=== PATIENT | female | born 1990 | race Caucasian/White ===

== ENCOUNTER 2018-11-20 17:55 | Inpatient (IN) | payer OTHER ==
[2018-11-20 18:19] VITALS: BMI 20.9
--- NOTE | 2018-11-20 19:10 | HP ---
COWS - Scale Resting Pulse: 0= [place] 80 or Below Sweatin= Chills/Flushing Restless Observation: 1= Difficult to Sit Still Pupil Size: 1= Pupils >than Normal Bone or Joint Aches: 2= Severe Diffuse Aches Runny Nose/ Eye Tearin= Runny Nose/Eyes GI Upset > 30mins: 2= Nausea/Diarrhea Tremor Observation: 2= Slight Tremor Visible Yawning Observation: 1= 1-2x During Session Anxiety or Irritability: 2=Irritable/Anxious Goose Flesh Skin: 0=Smooth Skin COWS Score: 14 CIWA Score - Admission Criteria [facility]ASAS Guidelines: Admission for Medically Managed Detox: Requires at least one of the followin. CIWA greater than 12 2. Seizures within the past 24 hours 3. Delirium tremens within the past 24 hours 4. Hallucinations within the past 24 hours 5. Acute intervention needed for co occurring medical disorder 6. Acute intervention needed for co occurring psychiatric disorder 7. Severe withdrawal that cannot be handled at a lower level of care (continued vomiting, continued diarrhea, abnormal vital signs) requiring intravenous medication and/or fluids 8. Admission ROS [facility] Chief Complaint: i am here need help to stop using heroin Allergies/Adverse Reactions: Allergies Allergy/AdvReac Type Severity Reaction Status Date / Time No Known Allergies Allergy Verified 11/20/18 18:08 History of Present Illness: this 28 years old female with herin dependence and alcohol abused,seeking help to stop using heroin, first time to this facility multiple admission in detox before,last 2017 also on medication for adhd no seizure,no syncope nicotine dependence 1/2 pack/day,dickson like to have nicotine patch and gum adhd,depression,anxiety weight loss longest sobriety 1 year from 12/07 to 12/08 plan for out patient program after detox Exam Limitations: No Limitations - Ebola screening Have you traveled outside of the country in the last 21 days: No (N) Have you had contact with anyone from an Ebola affected area: No Do you have a fever: No - Review of Systems Constitutional: Chills, Loss of Appetite, Malaise, Night Sweats, Changes in sleep, Weakness EENT: reports: Tearing, Nose Congestion Respiratory: reports: No Symptoms reported Cardiac: reports: No Symptoms Reported GI: reports: Nausea, Poor Appetite, Abdominal cramping : reports: No Symptoms Reported Musculoskeletal: reports: Back Pain, Joint Pain, Muscle Pain Integumentary: reports: Dryness Neuro: reports: Headache, Tremors Endocrine: reports: No Symptoms Reported Hematology: reports: No Symptoms Reported Psychiatric: reports: No Sypmtoms Reported, Judgement Intact, Mood/Affect Appropiate, Orientated x3, Anxious, Depressed, other (insomnia adhd) Other Systems: Reviewed and Negative Patient History - Patient Medical History Hx Anemia: No Hx Asthma: No Hx Chronic Obstructive Pulmonary Disease (COPD): No Hx Cancer: No Hx Cardiac Disorders: No Hx Congestive Heart Failure: No Hx Hypertension: No Hx Hypercholesterolemia: No Hx Pacemaker: No HX Cerebrovascular Accident: No Hx Seizures: No Hx Dementia: No Hx Diabetes: No Hx Gastrointestinal Disorders: No Hx Liver Disease: No Hx Genitourinary Disorders: No Hx Sexually Transmitted Disorders: No Hx Renal Disease (ESRD): No Hx Thyroid Disease: No Hx Human Immunodeficiency Virus (HIV): No (last 2018 negagive) Hx Hepatitis C: No Hx Depression: Yes (anxiety,depression,insomnia) Hx Suicide Attempt: No Hx Bipolar Disorder: No Hx Schizophrenia: No Other Medical History: no sucidal,no homicidal,adhd - Patient Surgical History Past Surgical History: Yes Hx Section: Yes (x 3,last 6 years) - PPD History Previous Implant?: Yes Documented Results: Negative w/o proof Implanted On Prior R Admission?: No PPD to be Administered?: No - Reproductive History Patient is a Female of Child Bearing Age (11 -55 yrs old): Yes Last Menstrual Period: 10/24/18 Patient : No - Smoking Cessation Smoking history: Current every day smoker Have you smoked in the past 12 months: Yes Aproximately how many cigarettes per day: 10 Hx Chewing Tobacco Use: No Initiated information on smoking cessation: Yes 'Breaking Loose' booklet given: 11/20/18 - Substance & Tx. History Hx Alcohol Use: Yes Hx Substance Use: Yes Substance Use Type: Alcohol, Heroin Hx Substance Use Treatment: Yes (2017) - Substances abused Heroin Substance route: Injection Frequency: Daily Amount used: 1 bundle and a half Age of first use: 19 Date of last use: 11/20/18 Alcohol Substance route: Oral Frequency: 1-2 times per week Amount used: 1 can of beer Age of first use: 19 Date of last use: 11/18/18 Family Disease History - Family Disease History Family History: Denies Admission Physical Exam [facility] - Vital Signs Vital Signs: Vital Signs - 24 hr 11/20/18 18:08 Temperature 98.0 F Pulse Rate 66 Respiratory 20 Rate Blood Pressure 110/70 - Physical General Appearance: Yes: Moderate Distress, Tremorous, Irritable, Sweating, Anxious HEENTM: Yes: Normal ENT Inspection, NICHOLAS, Pharynx Normal Respiratory: Yes: Lungs Clear, Normal Breath Sounds, No Respiratory Distress Neck: Yes: Within Normal Limits, Supple, Trachea in good position Breast: Yes: Breast Exam Deferred Cardiology: Yes: Within Normal Limits, Regular Rhythm, Regular Rate, S1, S2 Abdominal: Yes: Within Normal Limits, Normal Bowel Sounds, Non Tender, Soft, Surgical Scar Genitourinary: Yes: Within Normal Limits Back: Yes: Normal Inspection, Muscle Spasm Musculoskeletal: Yes: Back pain, Muscle Pain Extremities: Yes: Normal Range of Motion, Tremors Neurological: Yes: battery builder II-XII NML intact, Alert, Motor Strength 5/5 Integumentary: Yes: Dry, Track [place] Lymphatic: Yes: Within Normal Limits - Diagnostic (1) Opioid dependence with withdrawal Current Visit: Yes Status: Acute (2) Alcohol abuse Current Visit: Yes Status: Acute (3) IVDU (intravenous drug user) Current Visit: Yes Status: Acute (4) Insomnia secondary to depression with anxiety Current Visit: Yes Status: Acute (5) ADHD Current Visit: Yes Status: Acute (6) Weight loss Current Visit: Yes Status: Acute (7) Nicotine dependence Current Visit: Yes Status: Acute Cleared for Admission [facility] - Detox or Rehab [facility] Level of Care: Medically Managed Detox Regimen/Protocol: Methadone Breathalyzer - Breathalyzer Breathalyzer: 0 Urine Drug Screen - Test Device Lot number: [id number] Expiration date: 08/20/20 - Control Is test valid?: Yes - Results Drug screen NEGATIVE: No Urine drug screen results: FEN-Fentanyl, MOP-Opiates, OXY-Oxycodone Inpatient Rehab Admission - Rehab Decision to Admit Inpatient rehab admission?: No
[2018-11-20] MEDS ORDERED: MENTHOL/PHENOL 1 EACH UD MM PRN (19:21)
[2018-11-20] MEDS ORDERED: MAG HYDROX/AL HYDROX/SIMETH 30 ML UNIT-DOSE CUP PO PRN (19:21)
[2018-11-20] MEDS ORDERED: MAGNESIUM HYDROX 2400MG/30ML ORAL SUSPENSION 30 ML CUP PO PRN (19:21)
[2018-11-20] MEDS ORDERED: ACETAMINOPHEN 325 MG TABLET (FP) PO PRN ×2 (19:21)
[2018-11-20] MEDS ORDERED: BISMUTH SUBSALICYLATE 524 MG/30 ML UD PO PRN (19:21)
[2018-11-20] MEDS ORDERED: MAGNESIUM CITRATE 300 ML BOTTLE PO PRN (19:21)
[2018-11-20] MEDS ORDERED: IBUPROFEN 400 MG TABLET (FP) PO PRN (19:21)
[2018-11-20] MEDS ORDERED: METHADONE HCL 10 MG TABLET (FOR DETOX USE ONLY) PO ONE (19:40)
[2018-11-20] MEDS: NICOTINE 21 MG/24 HOURS TOPICAL PATCH TD SCH (20:16)
[2018-11-20] MEDS: METHOCARBAMOL 500 MG TABLET PO PRN (20:16)
[2018-11-20] MEDS: THIAMINE HCL 100 MG TABLET (FP) PO SCH (21:09)
[2018-11-20] MEDS: diazePAM 5 MG TABLET PO PRN (21:09)
[2018-11-20] MEDS: MELATONIN 5 MG TABLETS PO PRN (21:10)
[2018-11-20] MEDS: NICOTINE POLACRILEX 2 MG GUM BUC PRN (21:12)
[2018-11-21] MEDS: diazePAM 5 MG TABLET PO PRN ×4 (05:21→19:16)
[2018-11-21] MEDS: NICOTINE POLACRILEX 2 MG GUM BUC PRN ×3 (05:35→12:14)
[2018-11-21] MEDS: METHOCARBAMOL 500 MG TABLET PO PRN ×3 (05:35→19:16)
[2018-11-21] MEDS ORDERED: METHADONE HCL 5 MG TABLET (FOR DETOX USE ONLY) ONE (09:38)
[2018-11-21] MEDS ORDERED: METHADONE HCL 10 MG TABLET (FOR DETOX USE ONLY) ONE (09:38)
--- NOTE | 2018-11-21 09:39 | EKG ---
Test Reason : Blood Pressure : / mmHG Vent. Rate : 066 BPM Atrial Rate : 066 BPM P-R Int : 146 ms QRS Dur : 084 ms QT Int : 418 ms P-R-T Axes : 062 069 049 degrees QTc Int : 438 ms NORMAL SINUS RHYTHM NORMAL ECG NO PREVIOUS ECGS AVAILABLE Confirmed by ADELA STROUD, HOLLY ([id number]) on 11/21/2018 9:39:18 AM Referred By: Feilciano Rosales Confirmed By:HOLLY CHAPMAN MD
[2018-11-21] MEDS ORDERED: METHADONE (DETOX) 20 MG, METHADONE (DETOX) 5 MG PO ONE (10:00)
[2018-11-21] MEDS: NICOTINE 21 MG/24 HOURS TOPICAL PATCH TD SCH (10:27)
[2018-11-21] MEDS: PRENATAL VITAMINS W/ FOLIC ACID TABLET (FP) PO SCH (10:27)
[2018-11-21] MEDS: hydrOXYzine PAMOATE 25 MG CAPSULE (FP) PO PRN (10:30)
[2018-11-21] MEDS: cloNIDine HCL 0.1 MG TABLET PO PRN ×2 (11:30→22:41)
[2018-11-21 12:07] LABS: ALBUMIN 3.2 g/dl (3.4-5.0); BILIRUBIN,TOTAL 0.4 mg/dL (0.2-1); BLOOD UREA NITROGEN 11.7 mg/dL (7-18); CALCIUM 8.7 mg/dL (8.5-10.1); CREATININE 0.5 mg/dL (0.55-1.3); POTASSIUM 4.1 mmol/L (3.5-5.1); TOT PROT 6.7 g/dl (6.4-8.2)
[2018-11-21 12:16] LABS: HEMATOCRIT 36.2 % (32.4-45.2); HEMOGLOBIN 12.4 GM/dL (10.7-15.3); MCH 29.8 pg (25.7-33.7); MCHC 34.2 g/dl (32.0-36.0); MEAN CELL VOLUME 87.2 fl (80-96); MEAN PLT VOLUME 8.4 fl (7.5-11.1); PLATELET COUNT 257 K/MM3 (134-434); RBC 4.15 M/mm3 (3.60-5.2); RDW 13.3 % (11.6-15.6); WHITE BLOOD COUNT 6.3 K/mm3 (4.0-10.0)
[2018-11-21 12:19] LABS: PH,URINE 7.5 (5.0-8.0); URINE APPEARANCE CLEAR; URINE BILIRUBIN NEGATIVE (NEGATIVE); URINE COLOR YELLOW; URINE GLUCOSE (UA) NEGATIVE (NEGATIVE); URINE KETONE NEGATIVE (NEGATIVE); URINE LEUK ESTERASE NEGATIVE (NEGATIVE); URINE NITRITE NEGATIVE (NEGATIVE); URINE PROTEIN NEGATIVE (NEGATIVE); URINE UROBILINOGEN 0.2 mg/dL (0.2-1.0)
--- NOTE | 2018-11-21 15:43 | CONSULT ---
[facility] Psychiatric Consult - Data Date of interview: 11/21/18 Admission source: [facility] Identifying data: Patient is a 28 year single female, mother of three, unemployed, and currently homeless. This is one of multiple admissions for patient. Patient admitted to for alcohol and opiate dependence. Substance Abuse History: - Smoking Cessation. Smoking history: Current every day smoker. Have you smoked in the past 12 months: Yes. Aproximately how many cigarettes per day: 10. Hx Chewing Tobacco Use: No. Initiated information on smoking cessation: Yes. 'Breaking Loose' booklet given: 11/20/18. - Substance & Tx. History. Hx Alcohol Use: Yes. Hx Substance Use: Yes. Substance Use Type : Alcohol, Heroin. Hx Substance Use Treatment: Yes (2017 [facility]). - Substances abused. Heroin. Substance route: Injection. Frequency: Daily. Amount used : 1 bundle and a half. Age of first use: 19. Date of last use: 11/20/18. Alcohol. Substance route: Oral. Frequency: 1-2 times per week. Amount used: 1 can of beer. Age of first use: 19. Date of last use: 11/18/18 Medical History: Hx 3 Section Psychiatric History: Patient's first psychiatric contact was at 17 years of age due to her history of difficulty focusing and restlessness behavior. She was diagnosed with ADHD and prescribed concerta. She reports seeing multiple outpatient psychiatric providers throughout the years. Her most recent outpatient psychiatric contact was are in September of 2018 at the [facility] in [facility]. She was discharged with a prescription of Concerta 72mg daily. Reports last taking concerta 2 weeks ago. Patient denies h/ o suicide attempt. At present patient presents as tired and letheragic. Patient denies h/o psychiatric hospitalization and suicide attempt. Physical/Sexual Abuse/Trauma History: denies. Mental Status Exam - Mental Status Exam Alert and Oriented to: Time, Place, Person Cognitive Function: Good Patient Appearance: Well Groomed Mood: Withdrawn Affect: Mood Congruent Patient Behavior: Fatigued, Cooperative Speech Pattern: Appropriate Voice Loudness: Moderately Soft/Quiet Thought Process: Goal Oriented Thought Disorder: Not Present Hallucinations: Denies Suicidal Ideation: Denies Homicidal Ideation: Denies Insight/Judgement: Poor Sleep: Fair Appetite: Fair Muscle strength/Tone: Normal Gait/Station: Normal Psychiatric Findings - Problem List ([place] 1, 2,3) (1) ADHD Current Visit: No Status: Chronic (2) Nicotine dependence Current Visit: Yes Status: Acute (3) Opioid dependence with withdrawal Current Visit: Yes Status: Acute (4) Alcohol abuse Current Visit: Yes Status: Acute - Initial Treatment Plan Initial Treatment Plan: Psychoeducation provided. Detoxification in progress. Observation.
--- NOTE | 2018-11-21 16:31 | PN ---
BHS COWS - Scale Resting Pulse: 0= [place] 80 or Below Sweatin= Chills/Flushing Restless Observation: 3= Extraneous Movement Pupil Size: 0= Normal to Room Light Bone or Joint Aches: 2= Severe Diffuse Aches Runny Nose/ Eye Tearin= Runny Nose/Eyes GI Upset > 30mins: 2= Nausea/Diarrhea Tremor Observation of Outstretched Hands: 2= Slight Tremor Visible Yawning Observation: 0= None Anxiety or Irritability: 1=Feels Anxious/Irritable Goose Flesh Skin: 0=Smooth Skin COWS Score: 13 BHS Progress Note (SOAP) Subjective: Sweating, body ache, chills Objective: 11/21/18 16:27 Last Vital Signs Temp Pulse Resp BP Pulse Ox 97.5 F L 68 18 134/81 11/21/18 13:53 11/21/18 13:53 11/21/18 13:53 11/21/18 13:53 Elevated blood pressure 134/81 (denies htn) Laboratory Tests 11/21/18 11/21/18 11/21/18 07:30 07:30 07:30 WBC 6.3 RBC 4.15 Hgb 12.4 Hct 36.2 MCV 87.2 MCH 29.8 MCHC 34.2 RDW 13.3 Plt Count 257 MPV 8.4 Sodium 138 Potassium 4.1 Chloride 104 Carbon Dioxide 28 Anion Gap 6 L BUN 11.7 Creatinine 0.5 L Est GFR (CKD-EPI)AfAm 150.52 Est GFR (CKD-EPI)NonAf 129.87 Random Glucose 71 L Calcium 8.7 Total Bilirubin 0.4 AST 15 ALT 19 Alkaline Phosphatase 80 Total Protein 6.7 Albumin 3.2 L Urine Color Urine Appearance Urine pH Ur Specific [place] Urine Protein Urine Glucose (UA) Urine Ketones Urine Blood Urine Nitrite Urine Bilirubin Urine Urobilinogen Ur Leukocyte Esterase RPR Titer Nonreactive 11/21/18 07:30 WBC RBC Hgb Hct MCV MCH MCHC RDW Plt Count MPV Sodium Potassium Chloride Carbon Dioxide Anion Gap BUN Creatinine Est GFR (CKD-EPI)AfAm Est GFR (CKD-EPI)NonAf Random Glucose Calcium Total Bilirubin AST ALT Alkaline Phosphatase Total Protein Albumin Urine Color Yellow Urine Appearance Clear Urine pH 7.5 Ur Specific [place] 1.014 Urine Protein Negative Urine Glucose (UA) Negative Urine Ketones Negative Urine Blood Negative Urine Nitrite Negative Urine Bilirubin Negative Urine Urobilinogen 0.2 Ur Leukocyte Esterase Negative RPR Titer Labs reviewed Assessment: 11/21/18 16:29 Withdrawal sxs Plan: Continue detox Encouraged PO water intake Elevated blood pressure (denies htn): most likely r/t withdrawal, on clonidine prn
[2018-11-21] MEDS: MELATONIN 5 MG TABLETS PO PRN (22:41)
[2018-11-21] MEDS: THIAMINE HCL 100 MG TABLET (FP) PO SCH (22:41)
[2018-11-22] MEDS: METHOCARBAMOL 500 MG TABLET PO PRN ×3 (05:35→18:59)
[2018-11-22] MEDS: diazePAM 5 MG TABLET PO PRN ×5 (05:35→23:06)
[2018-11-22] MEDS ORDERED: METHADONE HCL 10 MG TABLET (FOR DETOX USE ONLY) PO ONE (10:00)
[2018-11-22] MEDS: NICOTINE 21 MG/24 HOURS TOPICAL PATCH TD SCH (10:45)
[2018-11-22] MEDS: PRENATAL VITAMINS W/ FOLIC ACID TABLET (FP) PO SCH (10:45)
[2018-11-22] MEDS: hydrOXYzine PAMOATE 25 MG CAPSULE (FP) PO PRN (12:02)
--- NOTE | 2018-11-22 13:34 | PN ---
BHS COWS - Scale Resting Pulse: 0= [place] 80 or Below Sweatin=Flushed/Facial Moisture Restless Observation: 1= Difficult to Sit Still Pupil Size: 0= Normal to Room Light Bone or Joint Aches: 2= Severe Diffuse Aches Runny Nose/ Eye Tearin= Runny Nose/Eyes GI Upset > 30mins: 0= None Tremor Observation of Outstretched Hands: 1= Tremor [place], Not Seen Yawning Observation: 1= 1-2x During Session Anxiety or Irritability: 2=Irritable/Anxious Goose Flesh Skin: 0=Smooth Skin COWS Score: 11 BHS Progress Note (SOAP) Subjective: sweats shakes interrupted sleep body aches irritable agitation Objective: 11/22/18 13:32 Vital Signs Temperature 97.3 F L 11/22/18 10:00 Pulse Rate 64 11/22/18 10:00 Respiratory Rate 18 11/22/18 10:00 Blood Pressure 99/64 11/22/18 10:00 O2 Sat by Pulse Oximetry (%) Laboratory Tests 11/20/18 11/21/18 11/21/18 18:30 07:30 07:30 WBC 6.3 RBC 4.15 Hgb 12.4 Hct 36.2 MCV 87.2 MCH 29.8 MCHC 34.2 RDW 13.3 Plt Count 257 MPV 8.4 Sodium 138 Potassium 4.1 Chloride 104 Carbon Dioxide 28 Anion Gap 6 L BUN 11.7 Creatinine 0.5 L Est GFR (CKD-EPI)AfAm 150.52 Est GFR (CKD-EPI)NonAf 129.87 Random Glucose 71 L Calcium 8.7 Total Bilirubin 0.4 AST 15 ALT 19 Alkaline Phosphatase 80 Total Protein 6.7 Albumin 3.2 L Urine Color Urine Appearance Urine pH Ur Specific [place] Urine Protein Urine Glucose (UA) Urine Ketones Urine Blood Urine Nitrite Urine Bilirubin Urine Urobilinogen Ur Leukocyte Esterase POC Urine HCG, Qual Negative RPR Titer 11/21/18 11/21/18 07:30 07:30 WBC RBC Hgb Hct MCV MCH MCHC RDW Plt Count MPV Sodium Potassium Chloride Carbon Dioxide Anion Gap BUN Creatinine Est GFR (CKD-EPI)AfAm Est GFR (CKD-EPI)NonAf Random Glucose Calcium Total Bilirubin AST ALT Alkaline Phosphatase Total Protein Albumin Urine Color Yellow Urine Appearance Clear Urine pH 7.5 Ur Specific [place] 1.014 Urine Protein Negative Urine Glucose (UA) Negative Urine Ketones Negative Urine Blood Negative Urine Nitrite Negative Urine Bilirubin Negative Urine Urobilinogen 0.2 Ur Leukocyte Esterase Negative POC Urine HCG, Qual RPR Titer Nonreactive labs noted aaox3 ambulating no acute distress Assessment: 11/22/18 13:33 withdrawal sx Plan: continue detox increase fluids
[2018-11-22] MEDS: NICOTINE POLACRILEX 2 MG GUM BUC PRN ×3 (14:50→22:38)
[2018-11-22] MEDS: THIAMINE HCL 100 MG TABLET (FP) PO SCH (22:36)
[2018-11-22] MEDS: MELATONIN 5 MG TABLETS PO PRN (22:38)
[2018-11-23] MEDS: METHOCARBAMOL 500 MG TABLET PO PRN ×4 (01:26→21:11)
[2018-11-23] MEDS: diazePAM 5 MG TABLET PO PRN ×4 (05:32→19:02)
[2018-11-23] MEDS: NICOTINE POLACRILEX 2 MG GUM BUC PRN ×4 (05:35→21:12)
[2018-11-23] MEDS ORDERED: METHADONE HCL 10 MG TABLET (FOR DETOX USE ONLY) ONE (08:46)
[2018-11-23] MEDS ORDERED: METHADONE HCL 5 MG TABLET (FOR DETOX USE ONLY) ONE (08:47)
--- NOTE | 2018-11-23 09:30 | PN ---
BHS COWS - Scale Resting Pulse: 0= [place] 80 or Below Sweatin=Flushed/Facial Moisture Restless Observation: 1= Difficult to Sit Still Pupil Size: 0= Normal to Room Light Bone or Joint Aches: 1= Mild Discomfort Runny Nose/ Eye Tearin= Runny Nose/Eyes GI Upset > 30mins: 0= None Tremor Observation of Outstretched Hands: 2= Slight Tremor Visible Yawning Observation: 1= 1-2x During Session Anxiety or Irritability: 2=Irritable/Anxious Goose Flesh Skin: 0=Smooth Skin COWS Score: 11 BHS Progress Note (SOAP) Subjective: agitation sweats shakes interrupted sleep body aches muscle aches/spasms Objective: 11/23/18 09:28 Vital Signs Temperature 97.7 F 11/23/18 06:00 Pulse Rate 69 11/23/18 06:00 Respiratory Rate 18 11/23/18 06:00 Blood Pressure 93/62 11/23/18 06:00 O2 Sat by Pulse Oximetry (%) Laboratory Tests 11/20/18 11/21/18 11/21/18 18:30 07:30 07:30 WBC 6.3 RBC 4.15 Hgb 12.4 Hct 36.2 MCV 87.2 MCH 29.8 MCHC 34.2 RDW 13.3 Plt Count 257 MPV 8.4 Sodium 138 Potassium 4.1 Chloride 104 Carbon Dioxide 28 Anion Gap 6 L BUN 11.7 Creatinine 0.5 L Est GFR (CKD-EPI)AfAm 150.52 Est GFR (CKD-EPI)NonAf 129.87 Random Glucose 71 L Calcium 8.7 Total Bilirubin 0.4 AST 15 ALT 19 Alkaline Phosphatase 80 Total Protein 6.7 Albumin 3.2 L Urine Color Urine Appearance Urine pH Ur Specific [place] Urine Protein Urine Glucose (UA) Urine Ketones Urine Blood Urine Nitrite Urine Bilirubin Urine Urobilinogen Ur Leukocyte Esterase POC Urine HCG, Qual Negative RPR Titer 11/21/18 11/21/18 07:30 07:30 WBC RBC Hgb Hct MCV MCH MCHC RDW Plt Count MPV Sodium Potassium Chloride Carbon Dioxide Anion Gap BUN Creatinine Est GFR (CKD-EPI)AfAm Est GFR (CKD-EPI)NonAf Random Glucose Calcium Total Bilirubin AST ALT Alkaline Phosphatase Total Protein Albumin Urine Color Yellow Urine Appearance Clear Urine pH 7.5 Ur Specific [place] 1.014 Urine Protein Negative Urine Glucose (UA) Negative Urine Ketones Negative Urine Blood Negative Urine Nitrite Negative Urine Bilirubin Negative Urine Urobilinogen 0.2 Ur Leukocyte Esterase Negative POC Urine HCG, Qual RPR Titer Nonreactive labs noted aaox3 ambulating no acute distress Assessment: 11/23/18 09:29 withdrawal sx Plan: continue detox increase fluids muscle relaxants prn motrin prn
[2018-11-23] MEDS ORDERED: METHADONE (DETOX) 10 MG, METHADONE (DETOX) 5 MG PO ONE (10:00)
[2018-11-23] MEDS: PRENATAL VITAMINS W/ FOLIC ACID TABLET (FP) PO SCH (10:08)
[2018-11-23] MEDS: NICOTINE 21 MG/24 HOURS TOPICAL PATCH TD SCH (10:09)
[2018-11-23] MEDS: THIAMINE HCL 100 MG TABLET (FP) PO SCH (21:11)
[2018-11-23] MEDS: MELATONIN 5 MG TABLETS PO PRN (21:11)
[2018-11-23] MEDS: hydrOXYzine PAMOATE 25 MG CAPSULE (FP) PO PRN (21:11)
[2018-11-24] MEDS: PRENATAL VITAMINS W/ FOLIC ACID TABLET (FP) PO SCH (09:24)
[2018-11-24] MEDS: NICOTINE 21 MG/24 HOURS TOPICAL PATCH TD SCH (09:24)
[2018-11-24] MEDS: METHOCARBAMOL 500 MG TABLET PO PRN ×3 (09:25→23:34)
[2018-11-24] MEDS: NICOTINE POLACRILEX 2 MG GUM BUC PRN ×5 (09:25→23:35)
[2018-11-24] MEDS ORDERED: METHADONE HCL 10 MG TABLET (FOR DETOX USE ONLY) PO ONE (10:00)
--- NOTE | 2018-11-24 14:31 | PN ---
BHS COWS - Scale Resting Pulse: 0= [place] 80 or Below Sweatin=Flushed/Facial Moisture Restless Observation: 1= Difficult to Sit Still Pupil Size: 0= Normal to Room Light Bone or Joint Aches: 1= Mild Discomfort Runny Nose/ Eye Tearin= None GI Upset > 30mins: 0= None Tremor Observation of Outstretched Hands: 0= None Yawning Observation: 0= None Anxiety or Irritability: 0= None Goose Flesh Skin: 0=Smooth Skin COWS Score: 4 BHS Progress Note (SOAP) Subjective: sweats body aches Objective: 11/24/18 14:29 Vital Signs Temperature 98.2 F 11/24/18 13:10 Pulse Rate 72 11/24/18 13:10 Respiratory Rate 18 11/24/18 13:10 Blood Pressure 104/50 L 11/24/18 13:10 O2 Sat by Pulse Oximetry (%) aaox3 ambulating no acute distress Assessment: 11/24/18 14:31 mild withdrawals Plan: continue detox d/c in am
[2018-11-24] MEDS: hydrOXYzine PAMOATE 25 MG CAPSULE (FP) PO PRN (16:36)
[2018-11-24] MEDS: THIAMINE HCL 100 MG TABLET (FP) PO SCH (21:21)
[2018-11-25] MEDS ORDERED: METHADONE HCL 5 MG TABLET (FOR DETOX USE ONLY) PO ONE (06:00)
[2018-11-25 09:28] VITALS: BP 111/72; PULSE 99; TEMP 96.6
[2018-11-25] MEDS: PRENATAL VITAMINS W/ FOLIC ACID TABLET (FP) PO SCH (09:31)
[2018-11-25] MEDS: NICOTINE 21 MG/24 HOURS TOPICAL PATCH TD SCH (09:31)
--- NOTE | 2018-11-25 09:36 | DS ---
[facility] Detox Discharge Summary Admission Date: 11/20/18 Discharge Date: 11/25/18 - History Present History: Alcohol Dependence, Opioid Dependence - Physical Exam Results Vital Signs: Vital Signs Temperature 96.6 F L 11/25/18 09:05 Pulse Rate 99 H 11/25/18 09:05 Respiratory Rate 18 11/25/18 09:05 Blood Pressure 111/72 11/25/18 09:05 O2 Sat by Pulse Oximetry (%) Pertinent Admission Physical Exam Findings: pt arrived in withdrawals Laboratory Tests 11/20/18 11/21/18 11/21/18 18:30 07:30 07:30 WBC 6.3 RBC 4.15 Hgb 12.4 Hct 36.2 MCV 87.2 MCH 29.8 MCHC 34.2 RDW 13.3 Plt Count 257 MPV 8.4 Sodium 138 Potassium 4.1 Chloride 104 Carbon Dioxide 28 Anion Gap 6 L BUN 11.7 Creatinine 0.5 L Est GFR (CKD-EPI)AfAm 150.52 Est GFR (CKD-EPI)NonAf 129.87 Random Glucose 71 L Calcium 8.7 Total Bilirubin 0.4 AST 15 ALT 19 Alkaline Phosphatase 80 Total Protein 6.7 Albumin 3.2 L Urine Color Urine Appearance Urine pH Ur Specific [place] Urine Protein Urine Glucose (UA) Urine Ketones Urine Blood Urine Nitrite Urine Bilirubin Urine Urobilinogen Ur Leukocyte Esterase POC Urine HCG, Qual Negative RPR Titer 11/21/18 11/21/18 07:30 07:30 WBC RBC Hgb Hct MCV MCH MCHC RDW Plt Count MPV Sodium Potassium Chloride Carbon Dioxide Anion Gap BUN Creatinine Est GFR (CKD-EPI)AfAm Est GFR (CKD-EPI)NonAf Random Glucose Calcium Total Bilirubin AST ALT Alkaline Phosphatase Total Protein Albumin Urine Color Yellow Urine Appearance Clear Urine pH 7.5 Ur Specific [place] 1.014 Urine Protein Negative Urine Glucose (UA) Negative Urine Ketones Negative Urine Blood Negative Urine Nitrite Negative Urine Bilirubin Negative Urine Urobilinogen 0.2 Ur Leukocyte Esterase Negative POC Urine HCG, Qual RPR Titer Nonreactive today pt is aaox3 ambulating no acute distress no s/s of withdrawals - Treatment Hospital Course: Detox Protocol Followed, Detoxed Safely, Responded well, Discharged Condition Good, Rehab Referral Accepted Patient has Accepted a Rehab Referral to: pt declined rehab; pt referred to [facility]p - Medication Discharge Medications: Ambulatory Orders Buprenorphine HCl/Naloxone HCl [Suboxone 12 mg-3 mg Sl Film] 1 film SL BID 11/20 Methylphenidate HCl [Concerta] 72 mg PO DAILY 11/20/18 - Diagnosis (1) Alcohol abuse Current Visit: Yes Status: Chronic (2) IVDU (intravenous drug user) Current Visit: Yes Status: Chronic (3) Insomnia secondary to depression with anxiety Current Visit: Yes Status: Acute (4) Nicotine dependence Current Visit: Yes Status: Chronic Qualifiers: Nicotine product type: cigarettes Substance use status: uncomplicated Qualified Code(s): F17.210 - Nicotine dependence, cigarettes, uncomplicated (5) Opioid dependence with withdrawal Current Visit: Yes Status: Chronic (6) Weight loss Current Visit: Yes Status: Acute (7) ADHD Current Visit: No Status: Chronic - AMA Did Patient Leave Against Medical Advice: No
== END 2018-11-25 09:12 | disposition home or self-care (01) | DRG 773 ==
LOC: YASAS 17:55 → Y6N 19:23
PROVIDERS: ADMIT Surgery; ATTEND Surgery
PROC: HZ2ZZZZ Detoxification Services for Substance Abuse Treatment (ICD-10-PCS; principal; 2018-11-20)
DX: F11.23 Opioid dependence with withdrawal (principal); F10.10 Alcohol abuse, uncomplicated; F17.210 Nicotine dependence, cigarettes, uncomplicated; F51.05 Insomnia due to other mental disorder; F90.9 Attention-deficit hyperactivity disorder, unspecified type; R63.4 Abnormal weight loss; R03.0 Elevated blood-pressure reading, without diagnosis of hypertension
CPT/HCPCS: 36415; 80053; 81003; 81025; 85027; 86480; 86593; 93005; 93010; J0735

== ENCOUNTER 2024-05-30 03:34 | Inpatient (IN) | payer OTHER ==
[2024-05-30 03:50] VITALS: BMI 20.7
[2024-05-30] MEDS ORDERED: MAG HYDROX/AL HYDROX/SIMETH 30 ML UNIT-DOSE CUP PO PRN (04:25)
[2024-05-30] MEDS ORDERED: guaiFENesin 600 MG TABLET.ER (FP) PO PRN (04:25)
[2024-05-30] MEDS ORDERED: DICYCLOMINE HCL 10 MG CAPSULE PO PRN (04:25)
[2024-05-30] MEDS ORDERED: LOPERAMIDE HCL 2 MG CAPSULE PO PRN (04:25)
[2024-05-30] MEDS ORDERED: BENZONATATE 200 MG CAPSULE PO PRN (04:25)
[2024-05-30] MEDS ORDERED: NALOXONE (NARCAN) HCL 4 MG/0.1 ML SPRAY NS PRN (04:25)
[2024-05-30] MEDS ORDERED: BISMUTH SUBSALICYLATE 524 MG/30 ML PO PRN (04:25)
[2024-05-30] MEDS ORDERED: BENZOCAINE/MENTHOL (CHLORASEPTIC ) LOZENGE MM PRN (04:25)
[2024-05-30] MEDS ORDERED: ACETAMINOPHEN 325 MG TABLET (FP) PO PRN (04:25)
[2024-05-30] MEDS ORDERED: hydrOXYzine PAMOATE 25 MG CAPSULE (FP) PO PRN (04:25)
[2024-05-30] MEDS ORDERED: POLYETHYLENE GLYCOL (HEALTHYLAX) 3350 17 GM PACKET PO PRN (04:25)
[2024-05-30] MEDS ORDERED: MAGNESIUM HYDROX 2400MG/30ML ORAL SUSPENSION 30 ML CUP PO PRN (04:25)
[2024-05-30] MEDS: methaDONE HCL 10 MG TABLET (FOR DETOX USE ONLY) PO ONE (04:43)
[2024-05-30] MEDS: ONDANSETRON *ODT* 4 MG TABLET SL PRN (04:53)
[2024-05-30] MEDS: BUPRENORPHINE/NALOXONE 0.5 MG/0.125 MG FILM SL ONE ×2 (04:53→22:28)
[2024-05-30] MEDS: METHOCARBAMOL 500 MG TABLET PO PRN (05:26)
[2024-05-30] MEDS ORDERED: METHOCARBAMOL 500 MG TABLET ONE (05:27)
[2024-05-30] MEDS: cloNIDine HCL 0.1 MG TABLET PO SCH (06:06)
[2024-05-30] MEDS ORDERED: cloNIDine HCL 0.1 MG TABLET ONE (06:19)
[2024-05-30] MEDS: NICOTINE POLACRILEX 2 MG LOZENGE BC PRN (08:49)
[2024-05-30] MEDS: BACITRACIN ZINC 15 GM TUBE TOPICAL OINTMENT TP SCH (09:21)
[2024-05-30] MEDS: NICOTINE 14 MG/24 HOURS TOPICAL PATCH TD SCH (09:21)
[2024-05-30] MEDS: PRENATAL VITAMINS W/ FOLIC ACID TABLET (FP) PO SCH (09:21)
[2024-05-30] MEDS: diazePAM 5 MG TABLET PO PRN (09:25)
[2024-05-30 11:26] LABS: HEMATOCRIT 30.4 % (32.4-45.2); HEMOGLOBIN 10.6 GM/dL (10.7-15.3); MCH 28.9 pg (25.7-33.7); MCHC 34.7 g/dl (32.0-36.0); MEAN CELL VOLUME 83.4 fl (80-96); MEAN PLT VOLUME 7.5 fl (7.5-11.1); PLATELET COUNT 274 10^3/uL (134-434); RBC 3.65 M/mm3 (3.60-5.2); RDW 15.1 % (11.6-15.6)
[2024-05-30 12:27] LABS: CHLORIDE 105 mmol/L (98-107); POTASSIUM 3.9 mmol/L (3.5-5.1); SODIUM 139 mmol/L (136-145)
[2024-05-30 12:37] LABS: BLOOD UREA NITROGEN 12.3 mg/dL (7-18); GLUCOSE,RANDOM 166 mg/dL (74-106)
[2024-05-30 12:38] LABS: ANION GAP 11 mmol/L (4-13); CO2 24 mmol/L (21-32)
[2024-05-30 12:40] LABS: CREATININE 0.8 mg/dL (0.55-1.3); SGOT/AST 17 U/L (15-37)
[2024-05-30 12:41] LABS: CALCIUM 8.5 mg/dL (8.5-10.1)
[2024-05-30 12:42] LABS: BILIRUBIN,TOTAL 0.4 mg/dL (0.2-1); SGPT/ALT 31 U/L (13-61); TOT PROT 6.9 g/dl (6.4-8.2)
[2024-05-30] MEDS: methaDONE HCL 10 MG TABLET (FOR DETOX USE ONLY) PO PRN (13:46)
[2024-05-30 15:13] LABS: ALK PHOS 111 U/L (45-117)
[2024-05-30] MEDS: THIAMINE 100 MG TABLET PO SCH (22:26)
[2024-05-30] MEDS: MELATONIN 5 MG TABLETS PO SCH (22:26)
[2024-05-31] MEDS: BUPRENORPHINE/NALOXONE 0.5 MG/0.125 MG FILM SL SCH (09:42)
[2024-05-31] MEDS: SUVOREXANT 10 MG TABLET PO PRN (22:53)
[2024-06-01] MEDS: methaDONE HCL 10 MG TABLET (FOR DETOX USE ONLY) PO ONE (09:03)
[2024-06-01] MEDS: BUPRENORPHINE/NALOXONE 2 MG/0.5 MG FILM PACKET SL SCH (09:05)
[2024-06-01] MEDS: BACITRACIN 0.9 GM PACKET TP SCH (09:54)
[2024-06-01] MEDS: IBUPROFEN 600 MG TABLET (FP) PO PRN (12:29)
[2024-06-02] MEDS: IBUPROFEN 400 MG TABLET (FP) PO PRN (00:59)
[2024-06-02] MEDS: BUPRENORPHINE/NALOXONE 4 MG/1 MG FILM PACKET SL SCH (10:51)
[2024-06-02] MEDS: GABAPENTIN 100 MG CAPSULE PO ONE (15:25)
[2024-06-02] MEDS: diazePAM 5 MG TABLET PO PRN (15:25)
[2024-06-02] MEDS: BUPRENORPHINE HCL 75 MCG FILM BC ONE (18:16)
[2024-06-02] MEDS: GABAPENTIN 100 MG CAPSULE PO SCH (22:33)
[2024-06-02] MEDS: propRANOLol HCL 10 MG TABLET PO SCH (22:35)
[2024-06-03] MEDS: methaDONE HCL 10 MG TABLET (FOR DETOX USE ONLY) PO ONE (09:28)
[2024-06-03] MEDS ORDERED: BUPRENORPHINE/NALOXONE 8 MG/2 MG FILM PACKET SL SCH (10:00)
[2024-06-03] MEDS: diazePAM 5 MG TABLET PO PRN (10:17)
[2024-06-03] MEDS: BUPRENORPHINE/NALOXONE 2 MG/0.5 MG FILM PACKET SL ONE (17:27)
[2024-06-04 09:49] VITALS: BP 109/71; PULSE 88; RESP 16; TEMP 97.7
[2024-06-04] MEDS ORDERED: BUPRENORPHINE/NALOXONE 8 MG/2 MG FILM PACKET SL SCH (10:00)
== END 2024-06-04 09:31 | disposition home or self-care (01) | DRG 773 ==
LOC: YASAS 03:34 → Y6N 05:03
PROVIDERS: ADMIT Allergy & Immunology; ATTEND Psychiatry & Neurology Pain Medicine
PROC: HZ2ZZZZ Detoxification Services for Substance Abuse Treatment (ICD-10-PCS; principal; 2024-05-30)
DX: F11.23 Opioid dependence with withdrawal (principal); F17.210 Nicotine dependence, cigarettes, uncomplicated; F19.282 Other psychoactive substance dependence with psychoactive substance-induced sleep disorder; F19.24 Other psychoactive substance dependence with psychoactive substance-induced mood disorder; R63.6 Underweight; Z68.20 Body mass index [BMI] 20.0-20.9, adult; Z86.59 Personal history of other mental and behavioral disorders
CPT/HCPCS: 36415; 80053; 80305; 80307; 81025; 85027; 86780; 86803; 93005; 93010; Q0162